=== PATIENT | male | born 1975 | race Two or more races ===

== ENCOUNTER 2023-09-26 13:06 | Emergency (ER) | payer OTHER ==
[2023-09-26 13:14] VITALS: RESP 18; BMI 26.7
[2023-09-26] MEDS ORDERED: ACETAMINOPHEN INJECTION 100 ML IVPB ONE (14:30)
[2023-09-26 14:37] LABS: EOS % 0.1 % (0-4.5); HEMATOCRIT 45.9 % (35.4-49); HEMOGLOBIN 15.5 GM/dL (11.7-16.9); LYMPH % 44.9 % (8-40); MCH 30.5 pg (25.7-33.7); MCHC 33.8 g/dl (32.0-35.9); MEAN CELL VOLUME 90.1 fl (80-96); MEAN PLT VOLUME 8.1 fl (7.5-11.1); MONO % 9.3 % (3.8-10.2); NEUT % 44.7 % (42.8-82.8); PLATELET COUNT 133 10^3/uL (134-434); WHITE BLOOD COUNT 2.9 K/mm3 (4.0-10.0)
[2023-09-26] MEDS: ACETAMINOPHEN 1000 MG/100 ML BAG IVPB ONE (14:37)
[2023-09-26] MEDS: SODIUM CHLORIDE 1,000 ML IV STA (14:37)
[2023-09-26 14:46] LABS: INR 1.08 (0.83-1.09); PROTHROMBIN TIME (PATIENT) 12.5 SEC (9.7-13.0)
[2023-09-26 14:49] LABS: ACTIVATED PTT 33.1 SECONDS (25.2-36.5)
[2023-09-26 14:52] LABS: POTASSIUM 4.9 mmol/L (3.5-5.1)
[2023-09-26 14:54] LABS: ALBUMIN 3.7 g/dl (3.4-5.0); CALCIUM 9.2 mg/dL (8.5-10.1)
[2023-09-26 14:55] LABS: MAGNESIUM 2.5 mg/dL (1.8-2.4)
[2023-09-26 14:57] LABS: CREATININE 1.4 mg/dL (0.55-1.3)
[2023-09-26 14:59] LABS: BILIRUBIN,TOTAL 0.7 mg/dL (0.2-1); TOT PROT 8.2 g/dl (6.4-8.2)
[2023-09-26 17:29] LABS: EPI CELLS 4 /uL (0-25.1); HYALINE CASTS 3 /uL (0-3.1); PH,URINE 5.5 (5.0-8.0); URINE APPEARANCE CLOUDY; URINE BACTERIA 1 /uL (0-1359); URINE BILIRUBIN 1+ (NEGATIVE); URINE COLOR DK YELLOW; URINE GLUCOSE (UA) NEGATIVE (NEGATIVE); URINE KETONE TRACE (NEGATIVE); URINE LEUK ESTERASE NEGATIVE (NEGATIVE); URINE NITRITE NEGATIVE (NEGATIVE); URINE PROTEIN 2+ (NEGATIVE); URINE RBC 10 /uL (0-23.9); URINE WBC 15 /uL (0-25.8)
[2023-09-26 17:57] VITALS: TEMP 98.8
[2023-09-26 19:14] LABS: URINE CRYSTALS NONE SEEN /hpf
[2023-09-26 21:15] VITALS: BP 111/74; PULSE 87
== END 2023-09-26 21:15 | disposition home or self-care (01) ==
LOC: JER 13:06
PROC: 3E030NZ Introduction of Analgesics, Hypnotics, Sedatives into Peripheral Vein, Open Approach (ICD-10-PCS; principal; 2023-09-26)
PROC: 3E0337Z Introduction of Electrolytic and Water Balance Substance into Peripheral Vein, Percutaneous Approach (ICD-10-PCS; 2023-09-26)
DX: R50.9 Fever, unspecified (principal); R10.814 Left lower quadrant abdominal tenderness; G89.29 Other chronic pain; R53.83 Other fatigue; R19.7 Diarrhea, unspecified; Z20.822 Contact with and (suspected) exposure to COVID-19
CPT/HCPCS: 0241U-QW; 36415; 71046-TC-FY; 74177-TC; 80053; 81003; 83605; 83735; 84484; 85025; 85610; 85730; 86850; 86900; 86901; 87040; 87086; 99285-25; J0131